=== PATIENT | female | born 1995 | race American Indian/Alaskan Native ===

== ENCOUNTER 2021-11-19 15:00 | Emergency (ER) | payer MEDICAID, OTHER ==
[2021-11-19 15:06] VITALS: BP 164/95
[2021-11-19 16:43] LABS: Basophils % (Auto) 0.4 % (0.0-1.8); Eosinophils # (Auto) 0.1 K/mm3 (0.0-0.4); Eosinophils % (Auto) 0.7 % (0.0-4.3); Hematocrit 39.7 % (30.3-42.9); Hemoglobin 13.6 gm/dl (10.1-14.3); Lymphocytes # (Auto) 1.8 K/mm3 (1.2-5.4); Lymphocytes % (Auto) 20.4 % (13.4-35.0); Mean Corpuscular HGB Conc 34 % (30-34); Mean Corpuscular Volume 82 fl (79-97); Monocytes # (Auto) 0.4 K/mm3 (0.0-0.8); Platelet Count 272 K/mm3 (140-440); Red Blood Count 4.85 M/mm3 (3.65-5.03); Red Cell Distribution Width 15.7 % (13.2-15.2)
[2021-11-20 00:14] LABS: Alanine Aminotransferase 8 units/L (7-56); Albumin 4.2 g/dL (3.9-5); Blood Urea Nitrogen 11 mg/dL (7-17); Calcium 8.8 mg/dL (8.4-10.2); Hemolysis Index 24
[2021-11-20] MEDS: ACETAMINOPHEN 500 MG TAB PO ONE ×2 (00:27→00:29)
[2021-11-20 00:35] LABS: BUN/Creatinine Ratio 18
--- NOTE | 2021-11-20 02:04 | Ultrasound Report ---
ULTRASOUND OBSTETRIC REASON FOR EXAM: vaginal bleeding, TECHNIQUE: Transabdominal and transvaginal ultrasound was performed to evaluate a first trimester pre gnancy. COMPARISON: None available. FINDINGS: FINDINGS: The pole, yolk sac, and gestational sac are normal in appearance. [place]-rump length: 2.5 mm. This corresponds with a gestational age of 5 weeks 6 days. heart rate: 90 bpm Perigestational hemorrhage: There is perigestational hemorrhage involving less than half the circumfe rence of the gestational sac. MATERNAL FINDINGS: The uterus demonstrates an otherwise unremarkable sonographic appearance. The right ovary demonstrates a 2.5 cm hypoechoic structure, most likely reflecting a corpus luteum cy st. Normal color Doppler flow. The left ovary demonstrates a normal sonographic appearance. Cul-de-sac: There is no free fluid. IMPRESSION: 1. Single live intrauterine with ultrasound age of 5 weeks and 6 days. heart rate ben sures 90 bpm, consistent with bradycardia. Close follow-up is suggested. 2. Small perigestational hemorrhage, which may account for vaginal bleeding. Signer Name: Omar Ji MD Signed: 11/20/2021 2:00 AM Workstation Name: [id number]
--- NOTE | 2021-11-20 03:04 | Emergency Department Report ---
ED Female HPI - General Chief complaint: Vaginal Bleeding Stated complaint: BAD CRAMPS AND BLEEDING 8 WEEKS Source: patient Mode of arrival: Ambulatory Limitations: No Limitations - History of Present Illness Initial comments: Patient is a A0 25-year-old -[place] female who is approximately 8 weeks gestation presents to the ED with complaint of acute onset persistent suprapubic cramps and pain with vaginal spotting for the last 12 hours intermittently. Patient states that the spotting has been persistent and she notices this when she wipes. Patient denies dizziness, syncope, fever, chills, dysuria, urinary frequency and urgency, vaginal discharge, low back pain, chest pain and shortness of breath, abdominal pain, nausea, vomiting or diarrhea, sore throat, headache or back pain. MD Complaint: vaginal bleeding (vaginal spotting), pelvic pain (suprapubic pain) -: Sudden, hour(s) (12) Location: suprapubic, other (vaginal) Radiation: non-radiating Severity: moderate Severity scale (0 -10): 5 Quality: cramping, dull, aching Consistency: constant Improves with: none Worsens with: none Are you Now?: Yes (8 weeks gestation) Associated Symptoms: denies other symptoms, vaginal bleeding (vaginal spotting), abdominal pain (suprapubic cramps), hematuria. denies: vaginal discharge, nausea/vomiting, fever/chills, headaches, loss of appetite, dysuria, rash, seizure, shortness of breath, syncope, weakness - Related Data Sexually active: Yes : 1 Para: 0 A: 0 Previous Rx's Medication Instructions Recorded Last Taken Type Acetaminophen [Tylenol] 1,000 mg PO Q6HR PRN #30 tablet 11/20/21 Unknown Rx Allergies Allergy/AdvReac Type Severity Reaction Status Date / Time No Known Allergies Allergy Verified 11/19/21 15:07 ED Review of Systems ROS: Stated complaint: BAD CRAMPS AND BLEEDING 8 WEEKS Other details as noted in HPI Constitutional: denies: chills, fever Eyes: denies: eye pain, eye discharge, vision change ENT: denies: ear pain, throat pain Respiratory: denies: cough, shortness of breath, wheezing Cardiovascular: denies: chest pain, palpitations Endocrine: no symptoms reported Gastrointestinal: abdominal pain (suprapubic). denies: nausea, vomiting, diarrhea, constipation, melena Genitourinary: abnormal menses (vaginal spotting). denies: urgency, dysuria, discharge Musculoskeletal: denies: back pain, joint swelling, arthralgia Skin: denies: rash, lesions Neurological: denies: headache, weakness, paresthesias Psychiatric: denies: anxiety, depression Hematological/Lymphatic: denies: easy bleeding, easy bruising ED Past Medical Hx - Medications Home Medications: Home Medications Medication Instructions Recorded Confirmed Last Taken Type Acetaminophen [Tylenol] 1,000 mg PO Q6HR PRN #30 tablet 11/20/21 Unknown Rx ED Physical Exam - General Limitations: No Limitations General appearance: alert, in no apparent distress - Head Head exam: Present: atraumatic, normocephalic, normal inspection - Eye Eye exam: Present: normal appearance, PERRL, EOMI Pupils: Present: normal accommodation - ENT ENT exam: Present: normal exam, normal orophraynx, mucous membranes moist, TM's normal bilaterally, normal external ear exam - Neck Neck exam: Present: normal inspection, full ROM. Absent: tenderness - Respiratory Respiratory exam: Present: normal lung sounds bilaterally. Absent: respiratory distress, wheezes, rales, rhonchi, chest wall tenderness, accessory muscle use, decreased breath sounds - Cardiovascular Cardiovascular Exam: Present: regular rate, normal rhythm, normal heart sounds. Absent: systolic murmur, diastolic murmur, rubs, gallop - GI/Abdominal GI/Abdominal exam: Present: soft, tenderness (suprapubic), normal bowel sounds. Absent: guarding, rebound, hyperactive bowel sounds, hypoactive bowel sounds, organomegaly - Bi-manual exam: Present: other (Pelvic exam deferred at this time) - Extremities Exam Extremities exam: Present: normal inspection, full ROM, normal capillary refill - Back Exam Back exam: Present: normal inspection, full ROM. Absent: tenderness, CVA tenderness (R), CVA tenderness (L), muscle spasm, paraspinal tenderness, vertebral tenderness - Neurological Exam Neurological exam: Present: alert, oriented X3, CN II-XII intact, normal gait, reflexes normal - Psychiatric Psychiatric exam: Present: normal affect, normal mood - Skin Skin exam: Present: warm, dry, intact, normal color. Absent: rash ED Course Vital Signs 11/19/21 15:04 Temperature 97.9 F Pulse Rate 105 H Respiratory 18 Rate Blood Pressure 164/95 [Left] O2 Sat by Pulse 97 Oximetry ED Medical Decision Making - Lab Data Result diagrams: 11/19/21 16:09 11/19/21 23:42 - Radiology Data Radiology results: report reviewed, image reviewed [facility] [address] [place] [address] Ultrasound Report Signed Patient: LILIBETH SONI MR#: [id number] : 1995 Acct:[id number] Age/Sex: 25 / F ADM Date: 11/19/21 Loc: ED Attending Dr: Ordering Physician: EVA LOVELL Date of Service: 11/19/21 Procedure(s): US OB transvaginal Accession Number(s): [id number] cc: EVA LOVELL ULTRASOUND OBSTETRIC REASON FOR EXAM: vaginal bleeding, TECHNIQUE: Transabdominal and transvaginal ultrasound was performed to evaluate a first trimester . COMPARISON: None available. FINDINGS: FINDINGS: The pole, yolk sac, and gestational sac are normal in appearance. [place]-rump length: 2.5 mm. This corresponds with a gestational age of 5 weeks 6 days. heart rate: 90 bpm Perigestational hemorrhage: There is perigestational hemorrhage involving less than half the circumference of the gestational sac. MATERNAL FINDINGS: The uterus demonstrates an otherwise unremarkable sonographic appearance. The right ovary demonstrates a 2.5 cm hypoechoic structure, most likely reflecting a corpus luteum cyst. Normal color Doppler flow. The left ovary demonstrates a normal sonographic appearance. Cul-de-sac: There is no free fluid. IMPRESSION: 1. Single live intrauterine with ultrasound age of 5 weeks and 6 days. heart rate measures 90 bpm, consistent with bradycardia. Close follow-up is suggested. 2. Small perigestational hemorrhage, which may account for vaginal bleeding. Signer Name: Juan Alberto Ji MD Signed: 11/20/2021 2:00 AM Workstation Name: [id number] Transcribed By: CORNELIUS Dictated By: JUAN ALBERTO JI MD Electronically Authenticated By: JUAN ALBERTO JI MD Signed Date/Time: 11/20/21 020 DD/ 2 TD/TT: - Medical Decision Making This is a A0 25-year-old -[place] female who is approximately 8 weeks gestation presents to the ED with complaint of acute onset persistent suprapubic cramps and pain with vaginal spotting for the last 12 hours intermittently. Patient states that the spotting has been persistent and she notices this when she wipes. In the ED, patient is alert and oriented x3 and is not in any distress. Patient is a milligram daily stable. Lab test results were reviewed and are all nonactionable and hCG quant was [id number]. Patient declined to give urine for urinalysis. The transvaginal ultrasound showed a single live IUP of approximately 5 weeks and 6 days with a heart rate of 90 bpm. Patient was treated for pain with Tylenol in the ED. On reevaluation, patient's pain is well controlled medication. Patient was discharged home and advised to maintain a complete pelvic rest with no heavy lifting or strenuous physical activities or sexual activity and to follow-up with [facility] physician in 3 to 5 days for reevaluation or return to the ED immediately if symptoms get worse. - Differential Diagnosis Threatened miscarriage; ectopic ; UTI; ovarian cyst; subcho. bleed Critical care attestation.: If time is entered above; I have spent that time in minutes in the direct care of this critically ill patient, excluding procedure time. ED Disposition Clinical Impression: Threatened miscarriage in early , Vaginal bleeding affecting early , Abdominal pain during in first trimester Disposition: 01 HOME / SELF CARE / HOMELESS Is pt being admited?: No Does the pt Need Aspirin: No Condition: Stable Instructions: Threatened Miscarriage, [id number], Vaginal Bleeding During , First Trimester, Vaginal Bleeding During , First Trimester, [id number] Additional Instructions: All lab test results were reviewed and are all nonactionable. Transvaginal ultrasound showed a single live intrauterine of approximately 5 weeks and 6 days with a heart rate of 90 bpm. Therefore maintain a complete pelvic rest devoid of any physical or strenuous activities or sexual activities. Follow-up with the [facility] physician in 3 to 5 days for reevaluation or return to the ED immediately if symptoms get worse. Prescriptions: Acetaminophen [Tylenol] 1,000 mg PO Q6HR PRN #30 tablet PRN Reason: Pain , Severe (7-10) Referrals: DUNG BLAKE MD [Staff Physician] - 7-10 days Time of Disposition: 03:09 Print Language: BURUNDI[place]
[2021-11-20 03:16] LABS: Bilirubin,Urine Negative (Negative); Blood,Urine Trace (Negative); Color,Urine Yellow (Yellow); Urobilinogen,Urine 0.2 mg/dL (<2.0)
[2021-11-20 03:35] LABS: Mucus,Urine 2+ /HPF
== END 2021-11-20 04:00 | disposition home or self-care (01) ==
LOC: ED 15:00
DX: O20.0 Threatened abortion (principal); O20.9 Hemorrhage in early pregnancy, unspecified; O26.891 Other specified pregnancy related conditions, first trimester; R10.9 Unspecified abdominal pain; Z3A.01 Less than 8 weeks gestation of pregnancy
CPT/HCPCS: 36415; 76801; 76817; 80053; 81001; 84702; 85025; 99284